=== PATIENT | male | born 1990 | race Two or more races ===

== ENCOUNTER 2024-06-29 14:18 | Emergency (ER) | payer MEDICAID, SELFPAY ==
[2024-06-29 14:33] VITALS: BP 160/91; PULSE 77; RESP 18; TEMP 36.4; O2SAT 96; BMI 55.9
[2024-06-29 14:45] VITALS: PULSE 74; RESP 18; O2SAT 99
--- NOTE | 2024-06-29 15:01 | PD.EDSYNC ---
ED Syncope RME/HPI General Chief Complaint: Syncope / Near Syncope Stated Complaint: SYNCOPAL EPISODE Time Seen by Provider: 06/29/24 15:17 Arrival date/time: 06/29/24 14:18 RME / HPI RME / HPI narrative: 33 year old male with history of hypertension presents to the ED [facility] for evaluation of syncopal episode today. States he was fishing with family when he suddenly began to have bilateral flank pain. 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 Reportedly lost consciousness and family had called 911. Per medics, on scene patient was awake, GCS of 15, answering all questions. Prehospital BS 104, blood pressure 151/102. Patient denies falling/head injury/trauma. Patient mentioned he had experienced similar symptoms 4 years ago and evaluated here where he was diagnosed with horseshoe kidneys . Reports 3 subsequent episodes of syncope since, totaling 4 syncopal episodes. Denies fevers, chills, chest pain, cough, shortness of breath, vomiting, diarrhea, constipation, or urinary symptoms. Related Data Home Medications ?Medication ?Instructions ?Recorded ?Confirmed No Known Home Medications 07/11/17 07/11/17 Allergies Allergy/AdvReac Type Severity Reaction Status Date / Time No Known Allergies Allergy Verified 07/11/17 13:47 Review of Systems Review of Systems Narrative Review of Systems: Constitutional: DENIES; Fevers Eyes: DENIES; Loss of vision Head/Ear/Nose: DENIES; Loss of hearing Throat: DENIES; Dysphagia Cardiovascular: SEE HPI +syncope, elevated heart rate DENIES; Chest pain, dyspnea Respiratory: DENIES; Shortness of breath Gastrointestinal: DENIES; Rectal bleeding or melena. Genitourinary: DENIES; Dysuria (painful or difficult urination) Musculoskeletal: SEE HPI +bilateral flank pain. DENIES; Arthralgia (pain in a joint),; Skin: DENIES; Rash Neurological: DENIES; Loss of function or movement Psychiatric: DENIES; recent major life stressor, emotional problem, illicit drug use or abuse Endocrinology: DENIES; Weight change Hematologic/Lymphatic: DENIES; Abnormal bruising Allergic/Immunologic: DENIES; Urticaria (hives) Past Medical History Past Medical History CARDIAC: Negative Congestive Heart Failure RESPIRATORY: Negative Chronic Obstructive Pulmonary Disease (COPD) GENITOURINARY: Negative Renal Disease ENDOCRINE: Negative Diabetes Mellitus Type 1 or Diabetes Mellitus Type 2 Family History FAMILY HISTORY: Positive Family Cardiac Disorders Social History SMOKING STATUS: Never smoker ED Exam Narrative Physical exam: Physical Exam: General: The vital signs were reviewed. Morbidly obese seen initially on the ambulance [place] patient was refusing to stay and wanted to leave AGAINST MEDICAL ADVICE nurse asked me to come speak with him and after speaking to him he agreed to stay for medical workup. The patient is non-toxic, in no apparent distress and appears healthy with a patent airway, no respiratory distress and has no apparent circulatory problems. Head & Scalp: Normocephalic, atraumatic. Face: Appears normal and is without lesions, deformity. Ears: Left external pinna appears normal. Right external pinna appears normal. Eyes: The sclera is anicteric. No obvious photophobia. The Left and Right Orbit/Lid/Conjunctiva appears normal without swelling, discoloration or injection. Nose: The nose is without deformity, discharge or tenderness; Throat: Appears normal. The mucous membranes are pink and moist without exudates, redness or mass seen. The tongue appears normal. Neck: The neck is supple and no apparent mass or adenopathy. Chest: The chest wall is normal in size and symmetry and has no chest wall tenderness or crepitus. The patient displays normal ventilator effort without retractions, accessory muscle use and has adequate air movement bilaterally with no wheezes and no rales. Cardiovascular: Regular rate and rhythm; No murmurs, rubs, or gallops; Gastrointestinal: The abdomen appears normal. No obvious hernias or mass. The abdomen is soft and benign, non-distended, with no pain, no guarding and no rebound tenderness. Bowel sounds are present and normal sounding. No CVA tenderness. Genitourinary: Back/Spine: No back pain Extremities/Musculoskeletal/lymphatic: The bilateral upper and lower extremities are warm. There is no evidence of arterial insufficiency. There is no evidence of venous insufficiency/edema. The patient spontaneously moves bilateral upper and lower extremities with no pain and no limitation of movement. There is no apparent, injury or trauma. Skin: The skin is warm, dry and intact. No rashes. No petechia. No purpura. No abnormal bruising. The color is appropriate with no cyanosis. Mental status/Psychiatric: Mental status is appropriate for age. The patient has no apparent delusions, visual hallucinations, no apparent audible hallucinations. The patient has no apparent suicidal thoughts/ideation and no apparent homicidal thoughts/ideation. Neurological: The patient is awake, alert, interactive, cordial, cooperative and is oriented to name and situation. The patient follows commands and answers historical question with no impairment. There is no visual disturbance apparent. The pupils are equal and reactive bilaterally with normal eye movements and no diplopia The bilateral upper and lower extremities have normal strength, normal range of motion and normal functioning. The gait, station and balance appear to be baseline with no acute change Course Quality Measures none Orders Category Date Time Status EKG (ED ONLY) *Do not use* NOW Care 06/29/24 15:[address] head/brain wo con Stat Exams 06/29/24 15:18 Completed EKG (ED Only) Stat Exams 06/29/24 15:18 Draft XR chest 1V portable Stat Exams 06/29/24 15:18 Completed B-Type Natriuretic Peptide Stat Lab 06/29/24 15:44 Completed Blood Culture (Lab) Stat Lab 06/29/24 15:51 Received CBC Stat Lab 06/29/24 15:44 Completed Comprehensive Metabolic Panel Stat Lab 06/29/24 15:44 Completed Drug Screen,Urine Stat Lab 06/29/24 16:50 Completed Lactate (Lactic Acid) Stat Lab 06/29/24 15:44 Completed Lipase Stat Lab 06/29/24 15:44 Completed Magnesium Stat Lab 06/29/24 15:44 Completed Prothrombin Time with INR Stat Lab 06/29/24 15:44 Completed Troponin I Stat Lab 06/29/24 15:44 Completed Urinalysis Stat Lab 06/29/24 16:50 Completed Urinalysis, C/S if Indicated Stat Lab 06/29/24 16:50 Completed Venous Blood Gas Stat Lab 06/29/24 15:44 Completed hydrALAZINE INJ [Apresoline Inj] Med 06/29/24 15:20 Discontinued 10 mg IV X1 ONE Vital Signs Vital signs: Vital Signs Temperature 97.6 F 06/29/24 14:33 Pulse Rate 77 06/29/24 14:33 Respiratory Rate 18 06/29/24 14:33 Blood Pressure 160/91 H 06/29/24 14:33 Pulse Oximetry (%) 96 06/29/24 14:33 Oxygen Delivery Method Room Air 06/29/24 14:33 Pulse ox is 96% on room air which is adequate. Syncope MDM Narrative MDM Narrative:: I, Roxanne Villar, am scribing for and in the presence of Dr. Benavidez. Patient is a 33-year-old who comes in stating his had 4 syncopal episodes and one he had the day when he had severe onset of pain in his left leg and then dated the right side started hurting he went back to his truck and he evidently had a near syncopal event or passed out. He states he has had 3 episodes prior to this similar of passing out episodes. Today's event was associated with severe pain that was transient and resolved. By the time I am seeing him in the ambulance bay he has no pain no history of kidney stones. He reports more of a bilateral flank pain but honestly it seems to start on the left. He has no fever cough runny nose he is not sick any other way. He is obese. He also has a history of hypertension. Recheck blood pressure was 145/92 and the original one was 160/91 with minimal improvement. Laboratory studies reveal a white count of 7.7 hemoglobin 16.8 PT/INR within normal limits venous blood gas 7.42 pCO2 of 37 sodium 140 potassium 3.7 Cardide 104 BUN is 8 creatinine is 1.0 lactic acid is normal at 1.5 urinalysis showed 9 red cells otherwise negative. Patient having syncope and may be vasovagal since he is associated with pain at least at this time. He also had some blood in his urine and maybe he was having a kidney stone that is passed as he has no pain at all since he has been here. Patient was vies drink plenty of fluids. Follow-up with his regular doctor who is giving him Wegovy for weight and to address his hematuria. He was instructed not to drive until cleared by his doctor Patient data External records reviewed:: [facility] previous records (I reviewed ED visit on 07/11/2017 ) and EMS form Clinical information provided by:: patient and EMS Social determinants that could affect healthcare access:: none Patient has the following chronic illnesses:: HTN How is presenting disease/condition affected by chronic disease/condition?: exacerbated by Evaluation data The following diagnostics were reviewed and interpreted by me:: lab results, radiology exam(s) and EKG tracing(s) (Sinus rhythm, rate 62, no STEMI, normal QTc. ) Lab and/or radiology exams considered but not ordered:: None Interpretation Summary: Ordering Physician: Anthony Benavidez MD Date of Service: 06/29/24 Procedure(s): XR chest 1V portable Accession Number(s): [id number] cc: Anthony Benavidez MD; Brandon Rocha MD~ Examination: AP chest single view Technique one AP portable upright chest single view Exam date and time: June 29, 2024 1536 hrs. Indications: Syncopal episode today. Findings: Minor prominence left ventricle No aspiration pneumonia No pulmonary edema The osseous structures are intact Impression: No aspiration pneumonia Dictated By: Brandon Rocha MD Signed By: <Electronically signed by Brandon Rocha MD in OV> 06/29/24 1551 Ordering Physician: Anthony Benavidez MD Date of Service: 06/29/24 Procedure(s): CT head/brain wo con Accession Number(s): [id number] cc: Anthony Benavidez MD; Brandon Rocha MD~ Examination: CT brain head without contrast. 2-D sagittal coronal reconstructions Date and time of exam:June 29, 2024 1848 hrs. Indications: Syncopal episode today CTDI: vol (mGy):66.4 DLP: (mGycm):1436 Technique: Multiple CT axial sections of the brain have been obtained, 5 mm slice thickness. Contrast has not been administered. 2-D sagittal, coronal reconstructions have been obtained Low dose protocols were performed. One or more of the following dose reduction techniques were used; automated exposure control, adjustment of the mA and/or KV according to patient size, use of iterative reconstruction technique. Findings: No significant ventricular enlargement. Intra-axial or extra-axial hemorrhage density is not seen. No mass effect or midline shift Basal cisterns are not remarkable. Fourth ventricle is midline. Cranial vault intact. Impression: Negative for acute hemorrhage, mass effect or midline shift Advise clinical correlation and follow-up accordingly Dictated By: Brandon Rocha MD Signed By: <Electronically signed by Brandon Rocha MD in OV> 06/29/24 1612 Medications / Prescriptions Medications or Prescriptions considered but not ordered:: None Medication administrations:: Medication Administration History Discontinued Medications Hydralazine HCl (Hydralazine Inj 20 Mg/Ml Vial) 10 mg IV X1 ONE Stop: 06/29/24 15:21 Last Admin: 06/29/24 16:33 Dose: 10 mg Documented By: DOUGLAS See above Consultations Consultation(s) initiated? (list below): No Diagnosis Syncope Differential Diagnosis: syncope due to orthostatic hypotension, vasovagal syncope, subarachnoid hemorrhage and dehydration Most likely diagnosis given after review of the tests above:: Recurrent syncope Morbid obesity Hypertension Hematuria Admission Indicated Admission indicated?: not indicated Admission Request Was there a request for admission?: No Disposition Plan Disposition Plan: Discharge Discharge Attestation Discharge Attestation: The patient and all family members were given an opportunity to ask questions and understood the discharge instructions. Discharge instructions specifically effects, indications for sooner follow up or return to the emergency department, and the expected course of current diagnosis. Patient condition: Stable Discharge Plan Plan Patient Disposition: HOME (Self Care) Patient condition on transfer: Stable Prescriptions/Referrals Prescriptions/Med Rec: No Action No Known Home Medications Problem List Clinical Impression: Recurrent syncope, Morbid obesity, Hypertension, Hematuria Patient/Caregiver Discharge Instructions Education Materials: What Is Syncope? Additional Instructions: It appears you are having episodes of syncope or passing out. Today's episode was associated with pain and most likely is a vasovagal reaction. No need to follow-up with your doctor as we discussed. There is no driving until your doctor clears you. He also had a little blood in your urine and the source of that is unclear. If you are having worse pain or flank pain please return as this may suggest a kidney stone. Your blood pressure is also little high and as we discussed she should have your doctor address your blood pressure and get started on medicine and regular exercise and weight loss will be very important. If you are getting worse in any way please return for reevaluation. Print Language: Scottish Stand Alone Forms: Ginger Award Info., Patient Portal Info Letter
--- NOTE | 2024-06-29 15:18 | XR_ITS ---
Examination: CT brain head without contrast. 2-D sagittal coronal reconstructions Date and time of exam:June 29, 2024 1848 hrs. Indications: Syncopal episode today CTDI: vol (mGy):66.4 DLP: (mGycm):1436 Technique: Multiple CT axial sections of the brain have been obtained, 5 mm slice thickness. Contrast has not been administered. 2-D sagittal, coronal reconstructions have been obtained Low dose protocols were performed. One or more of the following dose reduction techniques were used; automated exposure control, adjustment of the mA and/or KV according to patient size, use of iterative reconstruction technique. Findings: No significant ventricular enlargement. Intra-axial or extra-axial hemorrhage density is not seen. No mass effect or midline shift Basal cisterns are not remarkable. Fourth ventricle is midline. Cranial vault intact. Impression: Negative for acute hemorrhage, mass effect or midline shift Advise clinical correlation and follow-up accordingly
--- NOTE | 2024-06-29 15:18 | EKG_ITS ---
[facility] Test Date: 2024-06-29 Pat Name: JANELLE OBRIEN Department: Room: - Gender: Male [employer]ician: : 1990 Requested By: Anthony Benavidez Order Number: [id number] Reading MD: Anthony Benavidez Measurements Intervals [place] Rate: 62 P: 20 LA: 198 QRS: -40 QRSD: 87 T: -10 QT: 378 QTc: 385 Interpretive Statements SINUS RHYTHM WITH SINUS ARRHYTHMIA LEFT AXIS DEVIATION [QRS AXIS < -30] PATTERN CONSISTENT WITH PULMONARY DISEASE No previous ECG available for comparison /[id number]/[email or web address]/[id number]
--- NOTE | 2024-06-29 15:18 | XR_ITS ---
Examination: AP chest single view Technique one AP portable upright chest single view Exam date and time: June 29, 2024 1536 hrs. Indications: Syncopal episode today. Findings: Minor prominence left ventricle No aspiration pneumonia No pulmonary edema The osseous structures are intact Impression: No aspiration pneumonia
[2024-06-29 16:07] LABS: Base Excess, Venous 0 (-3-3); O2 Saturation, Venous 77 % (96-97); PCO2, Venous 37 mmHg (36-56); PO2, Venous 39 mmHg (15-58); pH, Venous 7.42 (7.33-7.66)
[2024-06-29 16:08] LABS: Basophils % (Auto) 1 % (0-2.5); Eosinophils # (Auto) 0.1 Thou/mm3 (0.0-0.5); Eosinophils % (Auto) 1 % (0-10); Hematocrit 48.1 % (41.0-53.0); Hemoglobin 16.8 g/dL (13.5-16.0); Immature Granulocytes % (Auto) 1 % (0-0); Immature Granulocytes Auto 0.05 Thou/mm3 (0.00-0.00); Lymphocytes # (Auto) 1.5 Thou/mm3 (1.0-4.8); Lymphocytes % (Auto) 19 % (10-50); Mean Corpuscular HGB Conc 34.9 g/dl (31.0-37.0); Mean Corpuscular Volume 86 fL (80-100); Monocytes # (Auto) 0.5 Thou/mm3 (0.0-0.8); Monocytes % (Auto) 6 % (0-12); Neutrophils # (Auto) 5.6 Thou/mm3 (1.8-7.7); Neutrophils % (Auto) 73 % (37-80); Nucleated Red Blood Cell % 0 /100 WBC (0); Platelet Count 298 Thou/mm3 (140-440); RDW Standard Deviation 39.2 fL (35.1-43.9); White Blood Count 7.7 Thou/mm3 (3.8-10.6)
[2024-06-29 16:09] LABS: Lactate (Lactic Acid) 1.5 mMol/L (0.4-2.0)
[2024-06-29 16:23] LABS: B-Type Natriuretic Peptide < 20 pg/mL (0-100)
[2024-06-29 16:25] LABS: Alanine Aminotransferase 78 U/L (10-49); Albumin, Serum 4.6 gm/dL (3.5-5.0); Albumin/Globulin Ratio 1.3 (1.2-2.2); Alkaline Phosphatase 72 U/L (46-116); Anion Gap 10 (7-16); Aspartate Amino Transferase 54 U/L (0-34); BUN/Creatinine Ratio 8 Ratio (12-20); Bilirubin,Total 0.5 mg/dL (0.3-1.2); Blood Urea Nitrogen 8 mg/dL (9-23); Calcium 9.6 mg/dL (8.3-10.6); Calcium (Corrected) 9.6 mg/dL (8.5-10.1); Chloride 104 mMol/L (98-107); Estimated Creatinine Clearance 170.2 mL/min (>60); Globulin 3.5 gm/dL (2.3-3.5); Glucose 90 mg/dL (74-106); Lipase 49 U/L (12-53); Magnesium 2.1 mg/dL (1.6-2.6); Osmolality,Calculated 277 (275-295); Potassium 3.7 mMol/L (3.4-5.1); Sodium 140 mMol/L (136-145); Total Protein 8.1 gm/dL (5.7-8.2); Troponin I < 0.002 ng/mL (0.0-0.045); eGFR > 60 See Note
[2024-06-29 16:33] VITALS: BP 160/91; PULSE 77
[2024-06-29] MEDS: hydrALAZINE INJ 20 MG/ML VIAL 10 MG IV (16:33)
[2024-06-29 16:58] VITALS: BP 145/92; PULSE 90; RESP 18; TEMP 36.9; O2SAT 98
[2024-06-29 17:00] LABS: Collection Type, Urine Clean Catch
[2024-06-29 17:04] LABS: Bilirubin,Urine Negative (Negative); Blood,Urine Trace (Negative); Clarity,Urine Clear (Clear/Hazy); Color,Urine Yellow (Lt Yel-Yel); Culture Indicated,Urine Not Indicated; Glucose, Urine Negative (Negative); Hyaline Casts,Urine < 1 /hpf (0-1); Ketones,Urine Negative (Negative); Leukocyte Esterase,Urine Negative (Negative); Nitrite,Urine Negative (Negative); Protein,Urine 1+ (Neg - Trace); RBC,Urine 9 /hpf (0-3); Specific Gravity,Urine 1.019 (1.001-1.035); Squamous Epithelial Cell,Urine < 1 /hpf (0-5); Urobilinogen,Urine Negative mg/dL (0.0-1.0); WBC,Urine 2 /hpf (0-5)
[2024-06-29 17:10] LABS: INR 1.1 (0.9-1.3)
[2024-06-29 17:14] LABS: Amphetamine/Methamp Scrn,U Negative (Negative); Barbiturate Screen,Urine Negative (Negative); Benzodiazepines Screen,Urine Negative (Negative); Benzoylecgonine Screen, Ur Negative (Negative); Fentanyl Screen,Urine Negative (Negative); Opiate Screen,Urine Negative (Negative); THC Screen,Urine Positive (Negative)
== END 2024-06-29 17:53 | disposition home or self-care (01) ==
PROVIDERS: Emergency Provider Emergency Medicine; PCP Physician Assistant
DX: E66.01 Morbid (severe) obesity due to excess calories (principal); Z68.43 Body mass index [BMI] 50.0-59.9, adult; I10 Essential (primary) hypertension; R31.9 Hematuria, unspecified
CPT/HCPCS: 36415; 70450; 71045; 80053; 80307; 81001; 82803; 83605; 83690; 83735; 83880; 84484; 85025; 85610; 87040; 93005; 99284; J0360